=== PATIENT | female | born 1950 | race Caucasian/White ===

== ENCOUNTER 2023-05-18 12:41 | Inpatient (IN) | payer BC, MEDICARE ==
[~2023-05-18] VITALS: Ht 172.7 cm; Wt 59.3 kg
[2023-05-18 13:51] LABS: BASO # 0.1 10^3/uL (0.0-0.2); BASO % 0.3 % (0.0-1.0); EOS # 0.1 10^3/uL (0.0-0.5); EOS % 0.4 % (0.0-3.0); HEMATOCRIT 41.3 % (36.0-47.0); HEMOGLOBIN 13.7 g/dl (12.0-15.5); LYMPH # 1.2 10^3/uL (1.5-5.0); LYMPH % 6.8 % (24.0-44.0); MEAN CORPUSCULAR HEMOGLOBIN 28.6 pg (27.0-33.0); MEAN CORPUSCULAR HGB CONC 33.2 g/dl (32.0-36.5); MEAN CORPUSCULAR VOLUME 86.2 fl (80.0-96.0); MONO # 1.7 10^3/uL (0.0-0.8); MONO % 9.6 % (2.0-8.0); NEUTROPHILS # 14.8 10^3/uL (1.5-8.5); PLATELET COUNT, AUTOMATED 379 10^3/uL (150-450); RED BLOOD COUNT 4.79 10^6/uL (4.00-5.40); WHITE BLOOD COUNT 18.1 10^3/uL (4.0-10.0)
[2023-05-18 14:10] LABS: ABG BASE EXCESS 6.5 (-2.0-2.0); ABG HCO3 33.5 MMOL/L (22.0-26.0); ABG O2 SATURATION 93.3 % (95.0-99.0); ABG PARTIAL PRESSURE CO2 58.3 mmHg (35.0-45.0); ABG PARTIAL PRESSURE O2 69.4 mmHg (75.0-100.0); ABG STANDARD HCO3 30.3 MMOL/L. (22.0-26.0); ABG TOTAL CO2 35.3 MMOL/L (23.0-31.0); ABG pH (ARTERIAL) 7.377 UNITS (7.350-7.450)
[2023-05-18 14:15] LABS: ALBUMIN 2.6 G/DL (3.2-5.2); ALKALINE PHOSPHATASE 108 U/L (46-116); ALT/SGPT 25 U/L (7.0-40); AST/SGOT 19 U/L (<34); BILIRUBIN,DIRECT 0.4 MG/DL (<0.4); BILIRUBIN,TOTAL 0.6 MG/DL (0.3-1.2); BLOOD UREA NITROGEN 14 MG/DL (9-23); CALCIUM LEVEL 8.4 MG/DL (8.3-10.6); CARBON DIOXIDE LEVEL 36 MMOL/L (20-31); CHLORIDE LEVEL 96 MMOL/L (98-107); CREATININE FOR GFR 0.48 MG/DL (0.55-1.30); GLOMERULAR FILTRATION RATE > 60.0 (>39); GLUCOSE, FASTING 148 MG/DL (74-106); POTASSIUM SERUM 3.7 MMOL/L (3.5-5.1); SODIUM LEVEL 138 MMOL/L (136-145)
[2023-05-18] MEDS ORDERED: ISOVUE-370 76% 100ML VIAL As Ordered ONE (14:46)
[2023-05-18 15:35] LABS: RSV AMPLIFICATION NEGATIVE (NEGATIVE)
[2023-05-18 16:15] LABS: PROCALCITONIN 0.19 ng/ml
[2023-05-18] MEDS: NS 1,000 ML IV SCH (16:40)
[2023-05-18] MEDS: AZITHROMYCIN INJ 500 MG, VIAL MATE ADAPTER 1 EACH in D5W 250 ML IV ONE (16:40)
[2023-05-18] MEDS: ERYTHROMYCIN OPHTH OINT OU ONE (17:49)
[2023-05-18] MEDS: methylPREDNISolone 125MG 2ML VIAL IV ONE (17:49)
[2023-05-18] MEDS: cefTRIAXone SOD 1 GM in D5W MINI-BAG PLUS 50 ML IV ONE (17:49)
[2023-05-18] MEDS ORDERED: HOME MED LIST COMPLETE! XX SCH (18:45)
[2023-05-18 19:39] LABS: PHOSPHORUS LEVEL 3.2 MG/DL (2.4-5.1)
[2023-05-18 19:41] VITALS: BP 139/97; TEMP 97.3; O2SAT 99
[2023-05-18 19:41] LABS: FREE T4 1.15 NG/DL (0.89-1.76); THYROID STIMULATING HORMONE 0.679 uIU/ML (0.55-4.78)
[2023-05-18 19:51] VITALS: O2SAT 94
[2023-05-18] MEDS: IPRATROPIUM 0.5MG/ALBUTEROL 2.5MG INH SOL UD 3ML (DUONEB) NEB SCH (20:00)
[2023-05-18 20:05] VITALS: BP 148/85; O2SAT 97
[2023-05-18] MEDS: ENOXAPARIN 40MG/0.4ML SYRINGE (J1650 PER 10MG) SC SCH (20:07)
[2023-05-18 20:15] LABS: INR 1.23; PROTHROMBIN TIME 15.1 SECONDS (12.5-14.5)
[2023-05-18 20:29] LABS: HEMOGLOBIN A1c 5.7 % (4.0-6.0)
[2023-05-18] MEDS: ERYTHROMYCIN OPHTH OINT TOP SCH (20:54)
[2023-05-18 21:00] VITALS: BP 125/70; O2SAT 98
[2023-05-18] MEDS ORDERED: DOXYCYCLINE HYCLATE 100MG TABLET PO SCH (21:00)
[2023-05-18 22:00] VITALS: BP 145/71; O2SAT 91
[2023-05-18 23:00] VITALS: BP 124/67; O2SAT 94
[2023-05-18 23:13] LABS: VENOUS BASE EXCESS 6.2 (-2.0-2.0); VENOUS HCO3 33.5 MMOL/L (23.0-27.0); VENOUS PARTIAL PRESSURE CO2 60.3 mmHg (38.0-50.0); VENOUS PARTIAL PRESSURE O2 108.6 mmHg (30.0-50.0); VENOUS PH 7.362 UNITS (7.330-7.430); VENOUS STANDARD HCO3 30.1 MMOL/L; VENOUS TOTAL CO2 35.3 MMOL/L (24.0-28.0)
[2023-05-19] VITALS (10 sets, daily range): BP systolic 101–138; BP diastolic 55–76; TEMP 97–98.9; O2SAT 6–99
[2023-05-19 05:08] LABS: BASO % 0.3 % (0.0-1.0); EOS % 0.1 % (0.0-3.0); LYMPH # 1.1 10^3/uL (1.5-5.0); LYMPH % 7.1 % (24.0-44.0); MEAN CORPUSCULAR HEMOGLOBIN 28.2 pg (27.0-33.0); MEAN CORPUSCULAR HGB CONC 31.7 g/dl (32.0-36.5); MEAN CORPUSCULAR VOLUME 89.1 fl (80.0-96.0); MONO # 0.5 10^3/uL (0.0-0.8); MONO % 3.4 % (2.0-8.0); NEUTROPHILS # 13.5 10^3/uL (1.5-8.5); NEUTROPHILS % 87.9 % (36.0-66.0); PLATELET COUNT, AUTOMATED 323 10^3/uL (150-450); RED BLOOD COUNT 4.04 10^6/uL (4.00-5.40); WHITE BLOOD COUNT 15.4 10^3/uL (4.0-10.0)
[2023-05-19 05:10] LABS: HEMOGLOBIN 11.4 g/dl (12.0-15.5)
[2023-05-19 05:32] LABS: HEMOGLOBIN A1c 5.8 % (4.0-6.0)
[2023-05-19 05:34] LABS: PROCALCITONIN 0.21 ng/ml
[2023-05-19 05:46] LABS: ALKALINE PHOSPHATASE 92 U/L (46-116); ALT/SGPT 20 U/L (7.0-40); AST/SGOT 12 U/L (<34); BILIRUBIN,TOTAL 0.3 MG/DL (0.3-1.2); BLOOD UREA NITROGEN 10 MG/DL (9-23); CARBON DIOXIDE LEVEL 38 MMOL/L (20-31); CHLORIDE LEVEL 100 MMOL/L (98-107); CHOLESTEROL LEVEL 77 MG/DL (<200); CHOLESTEROL RISK RATIO 4.03 (<5); CREATININE FOR GFR 0.45 MG/DL (0.55-1.30); GLOMERULAR FILTRATION RATE > 60.0 (>39); GLUCOSE, FASTING 160 MG/DL (74-106); HDL CHOLESTEROL 19.1 MG/DL (>40); LDL CHOLESTEROL 46.3 MG/DL (<100); NON-HDL-C 57.9 MG/DL; POTASSIUM SERUM 4.2 MMOL/L (3.5-5.1); SODIUM LEVEL 139 MMOL/L (136-145); TOTAL PROTEIN 4.9 G/DL (5.7-8.2); TRIGLYCERIDES LEVEL 58 MG/DL (<150)
[2023-05-19] MEDS: methylPREDNISolone 40MG 1ML VIAL IV SCH (06:10)
[2023-05-19] MEDS: LEVALBUTEROL 1.25MG 0.5ML CONCENTRATE NEB INH SCH (07:41)
[2023-05-19] MEDS: IPRATROPIUM 0.5MG/ALBUTEROL 2.5MG INH SOL UD 3ML (DUONEB) NEB SCH (08:00)
[2023-05-19] MEDS: PANTOPRAZOLE 40MG VIAL IV SCH (09:43)
[2023-05-19] MEDS: TIOTROPIUM INHALER/CAPSULE (SPIRIVA) INH SCH (11:59)
[2023-05-19] MEDS: SYMBICORT 160/4.5MCG INHALER 6GM INH SCH (12:00)
[2023-05-19] MEDS: AZITHROMYCIN 250MG TABLET PO SCH (16:42)
[2023-05-19] MEDS ORDERED: AZITHROMYCIN INJ 500 MG, VIAL MATE ADAPTER 1 EACH in NS 250 ML IV SCH (17:00)
[2023-05-19] MEDS: cefTRIAXone SOD 1 GM in D5W MINI-BAG PLUS 50 ML IV SCH (17:51)
[2023-05-20 06:40] VITALS: BP 125/78; TEMP 97.9; O2SAT 92
[2023-05-20 08:06] LABS: HEMOGLOBIN 11.3 g/dl (12.0-15.5); MEAN CORPUSCULAR HEMOGLOBIN 28.8 pg (27.0-33.0); MEAN CORPUSCULAR HGB CONC 32.3 g/dl (32.0-36.5); MEAN CORPUSCULAR VOLUME 89.1 fl (80.0-96.0); PLATELET COUNT, AUTOMATED 384 10^3/uL (150-450); RED BLOOD COUNT 3.93 10^6/uL (4.00-5.40); WHITE BLOOD COUNT 15.9 10^3/uL (4.0-10.0)
[2023-05-20 08:21] LABS: BLOOD UREA NITROGEN 12 MG/DL (9-23); CALCIUM LEVEL 8.2 MG/DL (8.3-10.6); CARBON DIOXIDE LEVEL 40 MMOL/L (20-31); CHLORIDE LEVEL 99 MMOL/L (98-107); CREATININE FOR GFR 0.41 MG/DL (0.55-1.30); GLOMERULAR FILTRATION RATE > 60.0 (>39); GLUCOSE, FASTING 122 MG/DL (74-106); POTASSIUM SERUM 3.8 MMOL/L (3.5-5.1); SODIUM LEVEL 138 MMOL/L (136-145)
[2023-05-20 08:36] LABS: ATYPICAL LYMPH 1 % (0-5); LYMPHOCYTES 6 % (16-44); MONOCYTES 9 % (0-5); NEUTROPHILS 81 % (28-66)
[2023-05-20 08:37] LABS: PLATELET ESTIMATE NORMAL (NORMAL)
[2023-05-20 08:39] LABS: ANISOCYTOSIS 1+
[2023-05-20] MEDS: predniSONE 20 MG TAB PO SCH (08:54)
[2023-05-21 06:00] VITALS: BP 138/70; TEMP 98.1; O2SAT 94
[2023-05-21] MEDS ORDERED: PRED20TA PO (07:10)
[2023-05-21] MEDS ORDERED: DOXY-444 PO (07:10)
[2023-05-21] MEDS ORDERED: PRED10TA2 PO ×2 (07:10)
[2023-05-21] MEDS ORDERED: ALBU8.5H INH (07:10)
[2023-05-21] MEDS ORDERED: BACI1CAP PO (07:10)
[2023-05-21] MEDS ORDERED: AZIT-12 PO (07:10)
[2023-05-21] MEDS ORDERED: CEFD1CAP9 PO (07:10)
[2023-05-21] MEDS ORDERED: SYMB16INH INH (07:12)
[2023-05-21 20:54] VITALS: BP 143/74; TEMP 97.5; O2SAT 93
[2023-05-22 06:28] VITALS: BP 132/64; TEMP 97.2; O2SAT 95
[2023-05-22] MEDS ORDERED: ADV250INH INH (10:35)
== END 2023-05-22 11:20 | disposition home health service (06) | DRG 193 ==
LOC: EDBD 12:41 → M ED 12:41 → M ED INP 17:49 → M ICU 19:34 → M MS5PR 05-19 16:50
PROVIDERS: ADMIT Internal Medicine; ATTEND Internal Medicine
DX: J18.9 Pneumonia, unspecified organism (principal); J96.01 Acute respiratory failure with hypoxia; J44.0 Chronic obstructive pulmonary disease with (acute) lower respiratory infection; J44.1 Chronic obstructive pulmonary disease with (acute) exacerbation; J96.12 Chronic respiratory failure with hypercapnia; I10 Essential (primary) hypertension; H10.9 Unspecified conjunctivitis; R91.8 Other nonspecific abnormal finding of lung field; F17.210 Nicotine dependence, cigarettes, uncomplicated; M54.16 Radiculopathy, lumbar region; R32 Unspecified urinary incontinence; R19.7 Diarrhea, unspecified; M48.061 Spinal stenosis, lumbar region without neurogenic claudication; Z11.52 Encounter for screening for COVID-19; Z71.6 Tobacco abuse counseling